=== PATIENT | male | born 1945 | race Caucasian/White ===

== ENCOUNTER → 2016-10-16 | Outpatient (CLI) | payer BC ==
--- NOTE | ~2016-10-16 | ENPV ---
Vascular Lower Arterial Plethysmography Procedure Demographics Patient Name MICHAEL VARGAS Date of Study 10/16/2016 Patient Number [id number] Gender Male Date of 1945 Age 71 Visit Number [id number] Height Accession Number [id number] Weight Room Number BSA BMI Referring Salomon Pittman MD Interpreting Juli Mccabe MD Physician Physician Physician Ordering Physician Salomon Pittman MD [employer] Miguel Mcconnell, T Conclusions Summary Right ankle/brachial index is 1.04 with no significant arterial disease at rest. The right lower extremity arteries appear to be within normal limits, no significant drop in blood pressures were identified. Left ankle/brachial index is 0.69 with moderate arterial disease at rest. There appears to be a moderate drop in blood pressure in the left lower thigh and proximal calf. 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 Right toe/brachial index is 0.64 suggestive of mild arterial disease. Left toe/brachial index is 0.42 suggestive of significant arterial disease. Procedure Type of Study: Extremities Arteries:Lower Arterial Plethysmography, Segmental Pressure, Complete. Indications for Study:Claudication. Patient Status:Routine. Study Location:[facility]. Technical Quality:Adequate visualization. Velocities are measured in cm/s ; Diameters are measured in cm Pressures + ++--------+-----+----+--------+-----+ ! !!Right ! !Left! ! ! + ++--------+-----+----+--------+-----+ !Location !!Pressure!Ratio! !Pressure!Ratio! + ++--------+-----+----+--------+-----+ !Upper Thigh !!153 !1.26 ! !154 !1.27 ! + ++--------+-----+----+--------+-----+ !Lower Thigh !!123 !1.02 ! !110 !0.91 ! + ++--------+-----+----+--------+-----+ !Ankle !!129 !1.07 ! !86 !0.71 ! + ++--------+-----+----+--------+-----+ !Ankle PT !!126 !1.04 ! !84 !0.69 ! + ++--------+-----+----+--------+-----+ !DP !!120 !0.99 ! !77 !0.64 ! + ++--------+-----+----+--------+-----+ !Great Toe !!77 !0.64 ! !51 !0.42 ! + ++--------+-----+----+--------+-----+ - Brachial Pressure:Right: 121.Left:114. - KARLY:Right: 1.04.Left: 0.69. Plethysmographic Digit Evaluation +---------++--------+-----+ ++--------+-----+ + ! !!Right ! !Left !! ! ! ! +---------++--------+-----+ ++--------+-----+ + !Location !!Pressure!Ratio!PPG Wave Form !!Pressure!Ratio!PPG Wave Form ! +---------++--------+-----+ ++--------+-----+ + !Great Toe!!77 !0.64 ! !!51 !0.42 ! ! +---------++--------+-----+ ++--------+-----+ + Signature Electronically signed by Juli Mccabe MD([facility] physician) on 10/22/2016 10:40 AM dtt: dtjacqueline: 10/16/16 1328 Physician Self Edit
== END | disposition disaster alternative care site (69) ==
LOC: GCAR 12:56
DX: I73.9 Peripheral vascular disease, unspecified (principal); H05.20 Unspecified exophthalmos